=== PATIENT | female | born 1995 | race Caucasian/White ===

== ENCOUNTER 2016-10-02 14:26 | Emergency (ER) | payer SELFPAY ==
[2016-10-02 14:37] VITALS: BP 144/84; PULSE 89; TEMP 98.6; BMI 21.6
--- NOTE | 2016-10-02 14:58 | PDOC ---
History of Present Illness - General Chief Complaint: Urinary Problem Stated Complaint: BLOOD URIINE Time Seen by Provider: 10/02/16 14:51 History Source: Patient - History of Present Illness Timing/Duration: reports: constant, getting worse Abdominal Pain Onset Location: reports: suprapubic Past History - Past Medical History Allergies/Adverse Reactions: Allergies Allergy/AdvReac Type Severity Reaction Status Date / Time No Known Allergies Allergy Verified 10/02/16 14:37 Home Medications: Ambulatory Orders Nitrofurantoin Monohyd/M-Cryst [Macrobid -] 100 mg PO BID #14 capsule 10/02/16 Other medical history: DENIES MEDICAL PROBLEMS - Psycho/Social/Smoking Cessation Hx Suicidal Ideation: No Smoking History: Never smoked Hx Alcohol Use: No Drug/Substance Use Hx: No Review of Systems - Review of Systems Constitutional: No: Chills, Fever : Yes: Dysuria, Hematuria. No: Flank Pain *Physical Exam - Vital Signs Last Vital Signs Temp Pulse Resp BP Pulse Ox 98.6 F 89 18 144/84 97 10/02/16 14:32 10/02/16 14:32 10/02/16 14:32 10/02/16 14:32 10/02/16 14:32 - Physical Exam General Appearance: Yes: Appropriately Dressed. No: Apparent Distress HEENT: positive: Normal Voice Neck: positive: Supple Respiratory/Chest: negative: Respiratory Distress Gastrointestinal/Abdominal: positive: Soft. negative: Tender Musculoskeletal: negative: CVA Tenderness Integumentary: positive: Dry, Warm Neurologic: positive: Fully Oriented, Alert, Normal Mood/Affect Medical Decision Making - Medical Decision Making 10/02/16 14:55 20-year-old female, no significant history, lost virginity 1 month ago after marriage and now here with dysuria with suprapubic pain 10 days and developed hematuria one time yesterday. No back/flank pain, nausea, vomiting, fever or chills. No history of UTIs in the past. No history of kidney stones. Denies any vaginal discharge. See exam R/o uti -ua/cx pending 10/02/16 15:14 +LE on ua. Will treat and follow up on ucx 10/02/16 15:25 *DC/Admit/Observation/Transfer Diagnosis at time of Disposition: Dysuria - Discharge Dispostion Disposition: HOME Condition at time of disposition: Good - Prescriptions Prescriptions: Nitrofurantoin Monohyd/M-Cryst [Macrobid -] 100 mg PO BID #14 capsule - Patient Instructions Printed Discharge Instructions: Urinary Tract Infection Additional Instructions: Take medications as directed Return for worsening of symptoms
[2016-10-02 14:59] LABS: URINE APPEARANCE CLEAR; URINE BILIRUBIN NEGATIVE (NEGATIVE); URINE BLOOD NEGATIVE (NEGATIVE); URINE COLOR YELLOW; URINE GLUCOSE (UA) NEGATIVE (NEGATIVE); URINE KETONE NEGATIVE (NEGATIVE); URINE NITRITE NEGATIVE (NEGATIVE); URINE PROTEIN NEGATIVE (NEGATIVE); URINE UROBILINOGEN 2.0 E.U/dl E.U./dl (0.2-1.0)
[2016-10-02 15:06] LABS: URINE LEUK ESTERASE 1+ (NEGATIVE)
[2016-10-02 15:09] LABS: GRANULAR CASTS 1 /lpf; URINE BACTERIA RARE /hpf (NONE SEEN); URINE MUCUS MODERATE; URINE RBC 4 /hpf (0-3); URINE WBC 36 /hpf (3-5)
== END 2016-10-02 15:30 | disposition home or self-care (01) ==
LOC: JERFT 14:26
DX: N30.01 Acute cystitis with hematuria (principal)
CPT/HCPCS: 81003; 81015; 84703; 87086; 87186; 99281-25